=== PATIENT | female | born 1970 | race Caucasian/White ===

== ENCOUNTER 2019-05-04 13:14 | Emergency (ER) | payer SELFPAY ==
[~2019-05-04] VITALS: Ht 165.1 cm; Wt 100.8 kg
[~2019-05-04 13:14] MED LIST: ALD25 PO; ASPIR 8181 MG PO; CARVEDILOL6.25 M1 PO; COR6 PO; COREG12.5 MG PO; GABAPENTIN100 M2 PO; GLIPIZIDE2.5 M1 PO; GLU5 PO; KEFLEX500 MG PO; LASIX40 MG; METFORMIN HCL1000 MG PO; METFORMIN HYD1000 M1 PO; ZES20 PO
[2019-05-04 13:19] VITALS: Ht 165.1 cm; Wt 100.8 kg
[2019-05-04 14:01] VITALS: BP 139/92
== END 2019-05-04 14:01 | disposition home or self-care (01) ==
LOC: ED 13:14
DX: T78.40XA Allergy, unspecified, initial encounter (principal); I10 Essential (primary) hypertension; E11.9 Type 2 diabetes mellitus without complications; E78.00 Pure hypercholesterolemia, unspecified; X58.XXXA Exposure to other specified factors, initial encounter